=== PATIENT | male | born 1965 | race Two or more races ===

== ENCOUNTER 2024-08-22 07:37 | Day surgery (SDC) | payer MEDICAID ==
[2024-08-16 12:57] LABS: Urine Bacteria None Seen /hpf (None Seen)
[2024-08-16 12:59] LABS: INR 0.99 (0.9-1.15); Partial Thromboplastin Time 29.2 SEC (24.5-34.5); Prothrombin Time 10.5 sec (9.3-11.8)
[2024-08-16 13:04] LABS: Anion Gap 8 (5-15); Carbon Dioxide 29 mmol/L (20-31); Chloride 103 mmol/L (98-107); Potassium 4.4 mmol/L (3.5-5.1); Sodium 140 mmol/L (136-145)
[2024-08-16 13:07] LABS: Urine Blood Negative /uL (Negative); Urine Clarity Clear (Clear); Urine Color Yellow (Yellow); Urine Mucus FEW (None Seen); Urine Protein, UAD Negative (Negative); Urine Specific Gravity 1.027 (1.001-1.035); Urine Squamous Epithelial Cell FEW /hpf (<5); Urine Urobilinogen 2 mg/dL (Negative); Urine WBC 1 /HPF (0-3)
[2024-08-16 13:08] LABS: Alkaline Phosphatase 93 U/L (46-116)
[2024-08-16 13:10] LABS: Blood Urea Nitrogen 22 mg/dL (9-23); Glucose 106 mg/dL (74-106); Total Protein 7.3 g/dL (5.7-8.2)
[2024-08-16 13:11] LABS: Albumin 4.6 g/dL (3.2-4.8)
[2024-08-16 13:12] LABS: Aspartate Aminotransferase 18 U/L (13-40); Bilirubin, Total 0.6 mg/dL (0.2-1.0)
[2024-08-16 13:17] LABS: Alanine Aminotransferase 37 U/L (7-40)
[2024-08-16 13:36] LABS: Basophils # (auto) 0.1 10 ^3/uL (0-0.2); Eosinophils # (auto) 0.2 10 ^3/uL (0-0.8); Eosinophils % (auto) 1.7 % (0.0-7.0); Hematocrit 43.9 % (41.0-53.0); Hemoglobin 15.4 g/dL (13.5-17.5); Lymphocytes # (auto) 2.5 10 ^3/uL (0.4-5.4); Lymphocytes % (auto) 27.1 % (10.0-50.0); Mean Corpuscular Hemoglobin 30.5 pg (28.0-32.0); Mean Corpuscular Volume 87.2 fL (80.0-100.0); Monocytes # (auto) 0.8 10 ^3/uL (0-1.3); Neutrophils # (auto) 5.6 10 ^3/uL (1.6-8.6); Neutrophils % (auto) 61.2 % (37.0-80.0); Platelet Count (auto) 236 10^3/uL (140-450); Red Blood Cells 5.04 10^6/uL (4.5-5.90); Red Cell Distribution Width 13.7 % (11.8-14.3); White Blood Cell 9.1 10^3/uL (4.4-10.8)
[~2024-08-22] VITALS: Ht 170.2 cm; Wt 103.0 kg
[~2024-08-22 07:37] MED LIST: AMLO1TAB23 PO; ASPI1TAB20 PO; ATOR20TA PO; CEPH500C PO; CETI10TA2 PO; HYDR-4902 PO; OMEP-448 PO; TRIA37.586 PO
[2024-08-22] MEDS ORDERED: CELECOXIB 100 MG CAP ONE (07:40)
[2024-08-22] MEDS ORDERED: PREGABALIN CAPSULE 75 MG CAP ONE (07:41)
[2024-08-22] MEDS ORDERED: ceFAZolin 2 GM/D5W50ml 50 ML IV ONE (07:41)
[2024-08-22] MEDS ORDERED: ACETAMINOPHEN IV 100 ML IV ONE (07:41)
[2024-08-22] MEDS: CELECOXIB 100 MG CAP PO ONE (08:04)
[2024-08-22] MEDS: PREGABALIN CAPSULE 75 MG CAP PO ONE (08:04)
[2024-08-22] MEDS: ACETAMINOPHEN IV 1000 MG/100ML (10MG/ML) IV ONE (08:04)
[2024-08-22] MEDS ORDERED: hydrALAZINE HCL 20 MG/ML VL IV PRN (08:45)
[2024-08-22] MEDS ORDERED: KETOROLAC TROMETH 30 MG/ML 1ML VIAL IV ONE (08:45)
[2024-08-22] MEDS ORDERED: HYDROmorphone HCL 2 MG/ML VL/or syr IV PRN (08:45)
[2024-08-22] MEDS ORDERED: ONDANSETRON HCL 4 MG/2 ML VIAL IV ONE (08:45)
[2024-08-22] MEDS ORDERED: MIDAZOLAM HCL 2MG/2ML 2ml VIAL (1mg/ml) ONE (08:54)
[2024-08-22] MEDS ORDERED: fentaNYL CITRATE 100 MCG/2 ML VL ONE (08:54)
[2024-08-22] MEDS ORDERED: ONDANSETRON HCL 4 MG/2 ML VIAL ONE (08:55)
[2024-08-22] MEDS ORDERED: PROPOFOL 10 MG/ML 20 ML IV ONE (08:55)
[2024-08-22] MEDS ORDERED: METOCLOPRAMIDE HCL 5MG/ml INJ 2ml VIAL ONE (08:55)
[2024-08-22] MEDS ORDERED: ePHEDrine SULFATE 50 MG/ML AMP ONE (09:35)
[2024-08-22 10:13] VITALS: PULSE 77; RESP 20; O2SAT 97
--- NOTE | 2024-08-22 10:17 | DVHOP2 ---
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 These include but are not limited to complications of anesthesia, postoperative infection, incomplete relief of symptoms, recurrence of symptoms, damage to blood vessels, nerves and tendons, deep venous thrombosis, pulmonary embolism and possible need for repeat surgery in the future. Complications: None Estimated Blood Loss: Less than 5 mL Indications for Surgery: The patient is a 58-year-old male who presented to the clinic with a history of left knee pain. Clinical and radiological evaluation demonstrated chondromalacia in the lateral compartment. Meniscus tear was also noted. Nonoperative and operative management options were discussed. Surgery in the form of knee arthroscopy with meniscus repair versus meniscectomy was discussed with him. Chondromalacia with microfracture was also discussed. Guarded prognosis was discussed due to the extensive chondromalacia. Benefits, risks and treatment alternatives were discussed. Specific complications of the surgery such as neurovascular injury, infection, arthrofibrosis, persistent pain, loss of limb or life were discussed. The patient decided to proceed with the surgical option. Name of Procedure Performed Left knee arthroscopy with chondroplasty, debridement of the lateral compartment Procedure Details Procedure Details: The patient was identified in the preoperative holding area and the surgical site was marked. The consent was verified. The patient was brought into the operating room and placed supine on the operating table. General anesthesia was administered. A tourniquet was applied over the proximal thigh. All the bony prominences were appropriately padded. The knee was positioned appropriately. The extremity was now prepped and draped in the usual sterile manner. A timeout was called out to confirm the identity of the patient, the nature of surgery, the site of surgery, the availability of implants and x-rays and allergies to medications. A standard anterolateral portal was established. A 30 degree scope was inserted. A standard anteromedial portal was established, a probe was inserted and the findings are as follows 1. Extensive full-thickness chondromalacia, grade 4 lateral compartment, femoral condyle and tibial plateau 2. Intact ACL and PCL 3. Intact medial compartment cartilage 4. Significant lateral meniscus tear with absent tissue 5. Intact patellofemoral joint with normal bio kinematics Extensive chondromalacia was noted. This was grade 4. This was not amenable to microfracture or any salvage procedures. Debridement was carried out. Chondroplasty of the edges was performed to stabilize it. He will likely need a total knee replacement due to extensive degeneration. Medial meniscus and the patellofemoral joint were relatively well preserved. Irrigation was given and the skin incisions were closed with 3-0 Monocryl. Sterile dressing was applied. Disposition: Good, he was extubated and taken to recovery without any complications. Plan: Weightbear as tolerated. Range of motion as tolerated. Follow up in two weeks. Condition Good Disposition Home THUY FAIR MD August 22, 2024 10:17
[2024-08-22 11:00] VITALS: BP 116/70
[2024-08-22 11:15] VITALS: PULSE 73; RESP 18; O2SAT 96
== END 2024-08-22 11:28 | disposition home or self-care (01) ==
LOC: SUR 07:37
PROVIDERS: ATTEND Orthopaedic Surgery Sports Medicine
DX: M94.262 Chondromalacia, left knee (principal); M17.12 Unilateral primary osteoarthritis, left knee; S83.282A Other tear of lateral meniscus, current injury, left knee, initial encounter; I10 Essential (primary) hypertension; F41.8 Other specified anxiety disorders; Z79.899 Other long term (current) drug therapy; Z98.890 Other specified postprocedural states; X58.XXXA Exposure to other specified factors, initial encounter; Y93.89 Activity, other specified; Y92.89 Other specified places as the place of occurrence of the external cause; Y99.8 Other external cause status
CPT/HCPCS: 29877; 36415; 80053; 81001; 85025; 85610; 85730; J0690; J2250; J2405; J2704; J2765; J3010; J0131